=== PATIENT | female | born 1950 | race Caucasian/White ===

== ENCOUNTER 2024-07-29 17:57 | Emergency (ER) | payer MEDICARE, SELFPAY ==
[2024-07-29] VITALS (10 sets, daily range): BP systolic 141–163; BP diastolic 56–83; PULSE 79–104; RESP 12–16; TEMP 36.3–36.8; O2SAT 95–98; BMI 23.0
--- NOTE | ~2024-07-29 | CT_ITS ---
EXAMINATION: CT HEAD WITHOUT CONTRAST (STROKE PROTOCOL) CLINICAL INFORMATION: Stroke protocol. Aphasia COMPARISON: None available. TECHNIQUE: Contiguous axial imaging was performed from the skull base to vertex without intravenous administration of contrast. This CT examination was performed using dose optimization techniques as appropriate, variously including the following: *Automated exposure control *Adjustment of mA and/or kV according to patient size (this includes techniques or standardized protocols for targeted exams where dose is matched to indication/reason for exam; i.e. extremities or head) *Use of iterative reconstruction technique DLP: 578 mGy-cm FINDINGS: There is a 3.3 x 2.2 x 3.8 cm hematoma centered within the anterior left frontal lobe. There is a mild amount of surrounding edema. There is local mass effect. There is trace kbtr-pr-[id number] midline shift. There is no evidence of acute/subacute cerebral or cerebellar infarction. There is no extra-axial fluid collection. The ventricles are normal in size. The orbits are symmetric and within normal limits. There is a minimal amount of mucosal thickening within the posterior aspect of the left maxillary sinus. The mastoid air cells are clear. CT/CT head for STROKE IMPRESSION: There is a 3.3 x 2.2 x 3.8 cm hematoma centered within the anterior left frontal lobe. There is a mild amount of surrounding edema. There is local mass effect. There is trace [id number] midline shift. This critical result was discussed with Checo Jean at 6:51 PM hours on 07/29/2024. It was ascertained that the content and urgency of the report was understood at the time of direct communication. Electronically signed by: Carlos Garsia DO 07/29/2024 06:51 PM [facility]
--- NOTE | ~2024-07-29 | MR_ITS ---
EXAMINATION: MR BRAIN WITHOUT AND WITH CONTRAST CLINICAL INFORMATION: Global aphasia COMPARISON: CT 07/29/2024. TECHNIQUE: Multiplanar, multisequence MRI of the brain was obtained before and after the intravenous administration of 6 mL Gadavist FINDINGS: A 2.7 cm x 2.0 cm intraparenchymal hematoma with intermediate T1 and predominantly intermediate T2-weighted signal intensity is present in the left frontal lobe unchanged in size compared with CT the head 07/29/2024 consistent with acute intraparenchymal hemorrhage. The periphery of this region demonstrates low signal on susceptibility weighted images consistent with early DIC hemoglobin in the setting of acute hemorrhage. Susceptibility weighted images demonstrate evidence of trace subarachnoid hemorrhage in the adjacent precentral sulcus. Hematoma centered in the posterior left superior frontal lobe gyrus and is associated with mild surrounding parenchymal edema. A chronic appearing subcortical infarct is present in the superior left parietal lobe (series 6 image 19). Elsewhere in the brain, a mild number scattered supratentorial subcortical and periventricular white matter punctate T2 hyperintensities are present in patchy T2 hyperintensities are present in the merrick. These findings have the appearance of chronic microangiopathic ischemic changes. Susceptibility weighted images demonstrate solitary 5 mm foci of low signal blooming artifact in the left occipital lobe and posterior right temporal lobe. These findings are without correlate on the additional imaging sequences and may represent small chronic vascular malformation such as cavernous angiomas or small areas of hemorrhage. The craniocervical junction and cerebellar tonsils are normal in configuration. No suspicious marrow abnormalities identified. Normal flow related signal intensity is noted in the major intracranial vessels and dural sinuses. Contrast-enhanced images demonstrate no abnormal enhancement of the brain parenchyma. Fortuitous visualization is made of several sulcal veins in continuity with the periphery of the hematoma which likely represents slow flow in adjacent cortical veins accentuated in visualization on postcontrast enhanced images. These vessels do not have the appearance of a vascular malformation. No enhancing lesions of the brain are identified. MR/MR head/brain wo/w con IMPRESSION: *Acute 2.7 cm x 2.0 cm intraparenchymal hematoma within the posterior superior left frontal lobe gyrus unchanged in size compared with CT of the head 07/29/2024. Minimal adjacent trace subarachnoid hemorrhage. No etiology of the intraparenchymal hemorrhage identified. No associated enhancing lesions. 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 *Moderate chronic microangiopathy. Ischemic changes. *Punctate focus of chronic hemorrhage within the left occipital lobe. Punctate focus of chronic hemorrhage within the right temporal lobe. These findings may represent small chronic low flow vascular malformation such as cavernous angiomas. No edema in the adjacent brain parenchyma. Electronically signed by: Jeyson José MD 07/29/2024 11:49 PM [facility]
--- NOTE | 2024-07-29 18:02 | ECG_ITS ---
Test Reason : STROKE Blood Pressure : / mmHG Vent. Rate : 088 BPM Atrial Rate : 088 BPM P-R Int : 130 ms QRS Dur : 074 ms QT Int : 396 ms P-R-T Axes : 011 030 -02 degrees QTc Int : 479 ms Normal sinus rhythm Inferior infarct , age undetermined Abnormal ECG No previous ECGs available Referred By: Checo Pierre Electronically Signed By:MONIQUE WAGNER MD
[2024-07-29 18:16] LABS: Glucose, Whole Blood 101 mg/dL (60-115)
[2024-07-29 18:23] LABS: MANUAL DIFF FLAG NO
--- NOTE | 2024-07-29 18:26 | PC.NURSE ---
júnior - pt was on her way to dinner when she arrived she had acute onset aphasia with some R leg weakness. LKW 1710/1715 pt VSS, her speech has begun to improve over time. pt has delayed effort in raising her R arm and R leg. 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 pt has weakness with R plantar extension but has SHANKAR strength with plantar flexion. face evenly symmetrical. able to follow direction. alert and oriented, answering questions appropriately with difficulty GCS 12
--- NOTE | 2024-07-29 18:33 | ED.NEUROSD ---
HPI - Neuro Symptoms/Deficit General Chief Complaint: Stroke Stated Complaint: stroke alert Time Seen by Provider: 07/29/24 18:02 Source: patient, family, EMS, RN notes reviewed and old records reviewed Mode of arrival: EMS Limitations: altered mental status (Patient has global aphasia) History of Present Illness ED Provider: Ignacio SHARMA Narrative: 71 year old female with past medical history significant for IBS presents for evaluation of altered mental status. The patient presents via EMS as a stroke alert. Apparently around 5:10 or 5:15 p.m. she had a sudden change in mental status. The patient was on her way to dinner with a [id number]. Apparently the patient had a sudden onset of inability to speak with some notable right-sided weakness specifically the foot The patient was unable to get out of the car by herself due to the weakness The patient was evaluated initially on arrival and brought directly to CT scan The patient is able to say yes or no but is unable to give detailed answers. She reports that she is not on any blood thinners or aspirin. Related Data Allergies Allergy/AdvReac Type Severity Reaction Status Date / Time meperidine [From Demerol] Allergy Unknown Verified 07/29/24 18:15 Sulfa (Sulfonamide Allergy Unknown Verified 07/29/24 18:15 Antibiotics) Review of Systems Constitutional: Constitutional: Denies chills, Denies fever(s), Denies frequent falls, Denies headache(s) and Reports weakness Eyes: Eyes: Denies blurry vision ENT: Denies headache(s) Cardiovascular: Cardiovascular: Denies chest pain Gastrointestinal: Gastrointestinal: Denies abdominal pain Neurologic: Reports Abnormal speech present, Denies confusion, Denies frequent falls, Denies headache(s) and Reports weakness Psychiatric: Psychiatric: Denies confusion PMFSH Social History Social History Smoked in Last 30 Days: No Use of substances other than those prescribed or required for medical reasons: No Advance Directives: No Advance Directives Information Provided: No Do you have a plan to hurt others: No Plan Physical Exam Vital Signs: Vital Signs: Last Vital Signs Temp 97.9 F 07/29/24 22:25 Pulse 104 H 07/29/24 22:25 Resp 14 07/29/24 22:25 BP 144/75 H 07/29/24 22:25 Pulse Ox 98 07/29/24 22:25 O2 Del Method Room Air 07/29/24 22:25 BMI result Body Mass Index 23.0 Const: General: No confusion Nutritional Appearance: well nourished Orientation/consciousness: No confusion HEENT: Head: Yes normocephalic and Yes atraumatic Eyes: Eyelids: Yes eyelids normal Conjunctivae: conjunctivae normal Sclerae: sclerae normal Corneas: corneas normal Pupils: Equal, round and reactive pupils present EOM: EOMs intact bilaterally Neck: Neck: Yes full ROM Resp: Effort & Inspection: normal respiratory effort, able to speak in complete sentences, no audible wheezes and not labored Auscultation: clear to auscultation bilaterally Cardio: Rate: regular rate Rhythm: regular rhythm GI: Inspection: No distended Palpation (GI): Soft to palpation, not firm, nontender, no guarding and not rigid Skin: General skin exam: elasticity normal Neuro: General: No confusion Cranial nerves: Yes CN's II-XII intact bilaterally, Yes Equal, round and reactive pupils present and Yes Bilaterally intact EOM present Speech: Abnormal speech present Details: expressive aphasia Course Reevaluation(s) Reevaluation #1: Patient evaluated immediately on arrival to the ED on the ambulance stretcher. The patient has near complete expressive aphasia. She is able to get occasional words out. The patient appears to understand everything that is asked of her, she follows commands well. She appears to have some slight weakness on the right lower extremity compared to the left. There was no facial asymmetry. Time: 18:00 Reevaluation #2: Received call from [facility], the confirms a small to moderate left frontal lobe subdural hematoma. The patient's is bedside, there was no trauma reported by the patient or family. Her aphasia remains constant. The patient is not a candidate for tPA given the hemorrhagic type stroke Time: 18:52 Reevaluation #3: I spoke to Neurosurgery, Dr Calvin Hughes at [facility], he was able to view the patient's images and feels the patient likely has a bleed from a bleeding meningioma. He recommends treating the patient with Decadron 10 mg IV right now and if she worsens 4 mg p.o. every 6 hours. He also recommends GI prophylaxis. Unfortunately there are no beds available tonight, the patient will be accepted to [facility] but will not be given a bed until tomorrow at the earliest. I updated the patient, her mental status has not changed. The patient and family are comfortable being transferred to our hospital if they are willing to accept the patient tonight. Time: 19:54 Additional Reevaluation(s): Discussed with [facility] transfer line who put me in touch with Dr. French at [facility] would like the patient to receive her MRI and then he will determine if he can accept the patient. The patient has received her MRI, I reached out to the [facility] transfer line again who is still working on upload the images to be viewable by the neurosurgeon 07/30/2024 1:24 a.m. received call from [facility] transfer line, they are able to view the MRI and will call back again to confirm that they are able to accept the patient to [facility]. 01:45am received call back from [facility], neurosurgery did not feel the patient require neurosurgical intervention at this time and did not see any indication for transfer. I did call you [facility] to see if they had any availability for a neurosurgical evaluation, they declined due to capacity. I discussed transferred to a further hospital such as the [facility] and patient and declined to be transferred any further than [place]. The patient is still accepted to [facility] pending a bed availability and family is comfortable waiting for that bed to be available. Patient is signed out to overnight staff pending bed placement at [facility] Medications Administered Discontinued Medications Generic Name Dose Route Start Last Admin Trade Name Freq PRN Reason Stop Dose Admin Dexamethasone Sodium Phosphate 10 mg 07/29/24 19:49 07/29/24 20:47 Dexamethasone Sod Phosphate 10 Mg/Ml Vial IVPUSH 07/29/24 19:50 10 mg ONCE ONE Administration Gadobutrol 7.5 ml 07/29/24 21:55 07/29/24 21:57 Gadobutrol 7.5 Ml Vial IVPUSH 07/29/24 21:56 6 ml ONCE ONE Administration Pantoprazole Sodium 40 mg 07/29/24 20:04 07/29/24 20:47 Pantoprazole Sodium 40 Mg/10 Ml Vial IVPUSH 07/29/24 20:05 40 mg ONCE ONE Administration Medical Decision Making Medical Decision Making MDM Narrative: Patient was brought directly to CT scan upon arrival as a stroke workup. She has a small to moderate left frontal lobe subdural hematoma. A call was placed to [facility] transfer line. The patient's blood pressure appears to be adequate at 154/67 on arrival, currently 143/71. She is not anticoagulated and therefore does not require any reversal. Differential Diagnosis Differential Diagnoses: The differential diagnosis associated with the presentation includes Subdural hemorrhage Intracranial hemorrhage Subarachnoid hemorrhage Ischemic CVA Expressive aphasia Admission/Observation Consideration of admission/observation: Escalation of care including admission/observation considered Lab Data MDM Lab Attestation statement: I reviewed the patient's lab results. No leukocytosis or anemia. Normal platelet count. Point of care glucose 101 07/29/24 18:19 07/29/24 18:18 Labs: Lab Results 07/29/24 07/29/24 07/29/24 Range/Units 18:03 18:18 18:19 WBC 9.2 (4.8-10.8) X10*3/uL RBC 4.77 (4.20-5.50) X10*6/uL Hgb 15.1 (12.0-16.0) g/dl Hct 42.5 (37.0-47.0) % MCV 89.1 (80.0-98.0) fL MCH 31.7 (27.0-33.0) pg MCHC 35.5 H (31.0-35.0) g/dl RDW 12.6 (11.0-16.0) % Plt Count 264 (160-400) X10*3/uL MPV 9.2 L (9.4-12.3) fL Immature Gran % (Auto) 0.7 H (0.0-0.4) % Neut % (Auto) 54.7 (45-73) % Lymph % (Auto) 27.6 (20-40) % [place] % (Auto) 10.5 (2-11) % Eos % (Auto) 5.2 H (0-4) % Baso % (Auto) 1.3 (0-2) % Lymph # (Auto) 2.5 (1.2-4.9) X10*3/uL [place] # (Auto) 1.0 (0.1-1.2) X10*3/uL Eos # (Auto) 0.5 H (0.0-0.4) X10*3/uL Baso # (Auto) 0.1 (0.0-0.2) X10*3/uL Abs Immat Gran (auto) 0.06 H (0.00-0.03) X10*3/uL Absolute Neuts (auto) 5.0 (2.0-8.3) x10*3/uL Absolute Nucleated RBC 0.000 (0.0-0.012) X10*3/uL Nucleated RBC % (auto) 0.0 (0.0-0.2) /100WBC PT 11.3 (10.9-12.4) SEC INR 1.0 (0.9-1.1) APTT 23.2 L (26.0-36.8) SEC Sodium 138 (135-145) mmol/L Potassium 3.4 (3.3-5.1) mmol/L Chloride 109 H (96-108) mmol/L Carbon Dioxide 18 L (22-29) mmol/L Anion Gap 14 (12-20) BUN 13 (9-16) mg/dL Creatinine 0.83 (0.5-1.4) mg/dL Estim Creat Clear Calc 52.9 Estimated GFR > 60 POC Glucose 101 (60-115) mg/dL Random Glucose 106 (60-115) mg/dL Calcium 10.2 (8.4-10.2) mg/dL Troponin I High Sens 3.6 (<3.5-17.0) ng/L Triglycerides 140 (<150) mg/dL Cholesterol 207 H (<200) mg/dL LDL Cholesterol, Calc 133 H (<100) mg/dL HDL Cholesterol 46 (>40) mg/dL Independent Interpretation I performed an independent interpretation of an: CT Scan (Small to moderate left frontal lobe hematoma) Radiology Impression Discussion of test interpretation with radiology: I have reviewed the radiologist's reading. Radiologist Impression: FINDINGS: There is a 3.3 x 2.2 x 3.8 cm hematoma centered within the anterior left frontal lobe. There is a mild amount of surrounding edema. There is local mass effect. There is trace [id number] midline shift. There is no evidence of acute/subacute cerebral or cerebellar infarction. There is no extra-axial fluid collection. The ventricles are normal in size. The orbits are symmetric and within normal limits. There is a minimal amount of mucosal thickening within the posterior aspect of the left maxillary sinus. The mastoid air cells are clear. CT/CT head for STROKE IMPRESSION: There is a 3.3 x 2.2 x 3.8 cm hematoma centered within the anterior left frontal lobe. There is a mild amount of surrounding edema. There is local mass effect. There is trace [id number] midline shift. This critical result was discussed with Checo Jean at 6:51 PM hours on 07/29/2024. It was ascertained that the content and urgency of the report was understood at the time of direct communication. Electronically signed by: Carlos Garsia DO 07/29/2024 06:51 PM [facility] NIH Stroke Scale Internal: Initial- Upon Arrival Time: 18:00 Level of Consciousness: Alert Level of Consciousness Questions: Answers both questions correctly Level of Consciousness Commands: Performs both tasks correctly Best Gaze: Normal Visual: No visual loss Facial Palsy: Normal Motor Arm (Right): Drift Motor Arm (Left): No drift Motor Leg (Right): Drift Motor Leg (Left): No drift Limb Ataxia: Absent Sensory: Normal Best Language: Severe aphasia Dysarthia: Mild to moderate dysarthria Extinction and Inattention: No abnormality Score: 5 Critical Care Time Critical Care Time Critical Care Time: Yes Total Critical Care Time: 70 Attestation: Patient required numerous consultations with outside facilities and specialties including transfer line, neurosurgery. Discharge Plan Discharge Clinical Impression: Intraparenchymal hematoma of brain Patient Disposition: Still a Patient Print Language: Slovenian
[2024-07-29 18:41] LABS: Prothrombin Time 11.3 SEC (10.9-12.4)
[2024-07-29 18:44] LABS: Partial Thromboplastin Time 23.2 SEC (26.0-36.8)
[2024-07-29 18:45] LABS: Stroke Lab Use COMPLETE
[2024-07-29 18:49] LABS: Basophils Absolute Auto 0.1 X10*3/uL (0.0-0.2); Basophils Percent Auto 1.3 % (0-2); Eosinophils Absolute Auto 0.5 X10*3/uL (0.0-0.4); Eosinophils Percent Auto 5.2 % (0-4); Hematocrit 42.5 % (37.0-47.0); Hemoglobin 15.1 g/dl (12.0-16.0); Imm Gran Abs Auto 0.06 X10*3/uL (0.00-0.03); Imm Gran Pct Auto 0.7 % (0.0-0.4); Lymphocytes Absolute Auto 2.5 X10*3/uL (1.2-4.9); Lymphocytes Percent Auto 27.6 % (20-40); Mean Corpuscular HGB Conc 35.5 g/dl (31.0-35.0); Mean Corpuscular Hemoglobin 31.7 pg (27.0-33.0); Mean Corpuscular Volume 89.1 fL (80.0-98.0); Mean Platelet Volume 9.2 fL (9.4-12.3); Monocytes Percent Auto 10.5 % (2-11); Neutrophils Percent Auto 54.7 % (45-73); Platelet Count 264 X10*3/uL (160-400); Red Blood Count 4.77 X10*6/uL (4.20-5.50); Red Cell Distribution Width 12.6 % (11.0-16.0); White Blood Count 9.2 X10*3/uL (4.8-10.8)
--- NOTE | 2024-07-29 18:57 | PC.NURSE ---
This RN assumes care of the patient from previous RN Sabra Hoffman. I spoke with RUDOLPH Pierre regarding swallow evaluation. Instructed to hold performing nursing swallow evaluation until we hear back from the neuro team. NPO until further notice. Neuro team has been contacted, awaiting review and call back.
[2024-07-29 19:00] LABS: Anion Gap 14 (12-20); Blood Urea Nitrogen 13 mg/dL (9-16); Calcium 10.2 mg/dL (8.4-10.2); Carbon Dioxide 18 mmol/L (22-29); Chloride 109 mmol/L (96-108); Cholesterol 207 mg/dL (<200); Creatinine Clr Calc Pharmacy 52.9; Estimated Glomerular Filt Rate > 60; Glucose Random 106 mg/dL (60-115); HDL Cholesterol 46 mg/dL (>40); LDL Cholesterol Calculated 133 mg/dL (<100); Potassium 3.4 mmol/L (3.3-5.1); Sodium 138 mmol/L (135-145); Triglycerides 140 mg/dL (<150)
[2024-07-29 19:04] LABS: Troponin-I High Sensitivity 3.6 ng/L (<3.5-17.0)
[2024-07-29] MEDS: dexAMETHasone sod phosphate 10 MG/ML VIAL IVPUSH (20:47)
[2024-07-29] MEDS: Pantoprazole Sodium 40 MG/10 ML VIAL IVPUSH (20:47)
--- NOTE | 2024-07-29 20:58 | MHC.EDTECH ---
pt off unit, heading to MRI with RN
[2024-07-29] MEDS: gadobutroL 7.5 ML VIAL IVPUSH (21:57)
--- NOTE | 2024-07-29 22:04 | MHC.EDTECH ---
pt arrived back from MRI to room ED6 at this time
--- NOTE | 2024-07-29 22:08 | PC.NURSE ---
Returned from MRI. Pt denies complaints at this time. RUDOLPH Pierre at bedside speaking with patient and her (Casimiro, aka:'') regarding plan to transfer to [facility]. Placed back on monitoring manager. Call nixon within reach. Warm blanket provided. Purewick in place to wall suction. Remains NPO. Awaiting EMS transfer. Care ongoing.
[2024-07-30 03:41] VITALS: BP 139/70; PULSE 92; RESP 17; TEMP 36.8; O2SAT 94
[2024-07-30 06:00] VITALS: BP 144/77; PULSE 96; RESP 15; TEMP 36.5; O2SAT 95
[2024-07-30 08:12] VITALS: BP 139/79; PULSE 100
[2024-07-30] MEDS: niCARdipine HCL 25 MG in 0.9 % Sodium Chloride 240 ML 50 MG IVCONT (08:12)
[2024-07-30 08:53] VITALS: BP 126/63; PULSE 119; RESP 19; TEMP 36.3; O2SAT 92
[2024-07-30] MEDS: Acetaminophen 325 MG TABLET 650 MG PO (09:18)
[2024-07-30 10:49] LABS: Prothrombin Time Whole Blood 11.9 sec (11.1-13.5)
[2024-07-30 10:55] VITALS: BP 126/63; PULSE 119; RESP 19; TEMP 36.3; O2SAT 92
== END 2024-07-30 09:30 | disposition still patient (30) ==
PROVIDERS: Physician Assistant; Emergency Provider Internal Medicine; PCP Internal Medicine
DX: I61.8 Other nontraumatic intracerebral hemorrhage (principal); R29.705 NIHSS score 5
CPT/HCPCS: 36415; 70450; 70553; 80048; 80061; 82947; 84484; 85025; 85610; 85730; 93005; 96374; 96375; 99285; A9585; J1100; J2404; J2470

== ENCOUNTER → 2024-07-29 18:02 | Outpatient (BNV) | payer MEDICARE, SELFPAY | PROVIDERS: Emergency Provider Internal Medicine; PCP Internal Medicine; Visit Provider Internal Medicine Cardiovascular Disease | DX: I63.9 Cerebral infarction, unspecified (principal); R94.31 Abnormal electrocardiogram [ECG] [EKG] | CPT/HCPCS: 93010 ==